=== PATIENT | male | born 1945 | race Caucasian/White ===

== ENCOUNTER 2020-03-05 20:07 | Emergency (ER) | payer OTHER, SELFPAY ==
--- NOTE | ~2020-03-05 | CT_ITS ---
EXAMINATION: CT abdomen pelvis wo con DATE: 03/05/2020 22:50 INDICATION: Nausea and vomiting. Abdominal pain. TECHNIQUE: Computed tomography (CT) of the abdomen and pelvis was performed without intravenous contr ast. Automated exposure control and iterative reconstruction technique were employed. The dose-length product was 402.93 mGy-cm. COMPARISON: None. FINDINGS: The visualized portions of the lung bases demonstrate emphysema. Calcified bilateral lung n odules are consistent with old granulomatous disease. No pleural effusion. The heart size is normal. No pericardial effusion. Calcifications in the liver and spleen are consistent with old granulomatous disease. There are gallstones in the gallbladder, which is normal in size. There is focal wall thick ening of the gallbladder fundus, consistent with adenomyomatosis. The pancreas, adrenal glands, and k idneys are normal. There is no urolithiasis. The prostate is moderately enlarged. There is diverticul osis of the colon without evidence of diverticulitis. There is long segment wall thickening of the de scending colon. There are no dilated loops of bowel. The appendix is normal. There are stents in the common and external iliac arteries. There are no pathologically enlarged lymph nodes. There is no evangelist e intraperitoneal fluid. There is mild lumbar spondylosis. IMPRESSION: 1. Wall thickening of the descending colon, consistent with colitis. Reviewed, dictated and finalized at location A.
[2020-03-05 20:19] VITALS: BP 132/69; PULSE 76; RESP 20; TEMP 36.7; O2SAT 98
[2020-03-05 20:34] LABS: Basophils Absolute Auto 0.1 K/mm3 (0.0-0.1); Basophils Percent Auto 0.4 % (0.2-1.2); Eosinophils Percent Auto 0.1 % (0-4.4); Hematocrit 40.4 % (42.0-52.0); Hemoglobin 12.8 g/dL (14.0-18.0); Immature Granulocyte Absolute 0.05 K/mm3 (0.00-0.031); Immature Granulocyte Percent A 0.3 % (0-0.5); Lymphocytes Absolute Auto 1.92 K/mm3 (0.9-3.2); Lymphocytes Percent Auto 11.6 % (18.3-44.2); Mean Corpuscular HGB Conc 31.7 g/dl (32-36); Mean Corpuscular Hemoglobin 21.3 pg (26-34); Mean Corpuscular Volume 67.2 fl (80-100); Mean Platelet Volume 10.2 fl (7.4-10.4); Monocytes Absolute Auto 1.1 K/mm3 (0.1-0.6); Monocytes Percent Auto 6.9 % (2.6-8.5); Neutrophils Absolute Auto 13.4 K/mm3 (1.3-6.7); Neutrophils Percent Auto 80.7 % (45.5-73.1); Platelet Count Result 205 k/mm3 (150-375); Red Blood Count 6.01 M/mm3 (4.6-6.20); Red Cell Distribution Width 19.1 % (11.5-14.5); White Blood Count 16.6 K/mm3 (4.5-10.0)
[2020-03-05 20:46] LABS: Alanine Aminotransferase 20 U/L (4-50); Albumin Level 4.8 g/dL (3.5-5.1); Alkaline Phosphatase 97 U/L (38-126); Aspartate Amino Transferase 30 U/L (17-59); Bilirubin,Total 1.1 mg/dL (0.2-1.3); Blood Urea Nitrogen 28 mg/dL (9-20); Calcium 9.9 mg/dL (8.4-10.2); Carbon Dioxide 22 mmol/L (22-30); Chloride 103 mmol/L (98-107); Estimated CRCL calculation 26 ml/min; Estimated Glomerular Filt Rate 29; Glucose 156 mg/dL (75-110); Lipase 51 U/L (23-300); Potassium 4.4 mmol/L (3.4-5.0); Sodium 137 mmol/L (137-145)
[2020-03-05 22:17] LABS: Add Urine Microscopic? YES; Appearance Urine Cloudy (Clear); Bilirubin Urine Negative (Negative); Blood Urine 1+ (Negative); Color Urine Amber (Yellow); Glucose Urine UA Negative (Negative); Hyaline Casts Urine 30-49 /lpf; Ketones Urine Negative (Negative); Leukocyte Esterase Ur 1+ LEU/UL (Negative); Mucus Urine Rare /lpf; Nitrate Urine Negative (Negative); Protein Urine 1+ mg/dL (Negative); Specific Grav Ur 1.025 (1.001-1.035); Squamous Epithelial Cell Urine Few /hpf (Few)
--- NOTE | 2020-03-05 22:24 | ED.ABDPAIN ---
HPI - Abdominal Pain General Chief Complaint: Abdominal Pain Stated Complaint: dizzy Time Seen by Provider: 03/05/20 21:15 History of Present Illness HPI narrative: Patient presents with his daughter for abdominal pain vomiting and diarrhea. 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 On the way home he started to have nausea and vomited, then he had to stop 4 times for diarrhea. Initially it was brown stool that had some bright red blood, and then resumed brown stool. He gauges his discomfort at a 5 out of 10 but does not want any pain medicine. He had his colonoscopy last year which was 2 polyps which were removed. He has a history of hypertension, hypercholesterolemia, carotid artery stenosis, iliac stents, cardiac stent. MD elicited complaint: abdominal pain Pertinent past history: other (Colon polyp) Onset (ago): hour(s) Related Data Allergies Allergy/AdvReac Type Severity Reaction Status Date / Time Penicillins Allergy Unknown Verified 03/05/20 22:33 Review of Systems Review of Systems: Narrative: CONSTITUTIONAL: Denies fever, chills, or sweats. EYES: Denies visual changes, redness, or discharge. ENT: Denies rhinorrhea, congestion, sore throat, or otalgia. CARDIOVASCULAR: Denies chest pain, palpitations, or edema. RESPIRATORY: Denies cough or dyspnea. GASTROINTESTINAL: He has abdominal pain, nausea, vomiting, or diarrhea. GENITOURINARY: Denies dysuria or hematuria. SKIN: Denies rash or itching. MUSCULOSKELETAL: Denies back pain, joint pain, or myalgia. NEUROLOGIC: Denies headache, numbness, or weakness. PSYCHIATRIC: Denies anxiety or depression. PMFSH Past Medical History Medical History Carotid stenosis Hypercholesterolemia Hypertension Surgical History Surgical History H/O heart artery stent Status post insertion of iliac artery stent Social History Social History (Updated 03/05/20 @ 22:25 by Valeria Stark MD) Smoking status: Former smoker Alcohol intake: never Substance use: never Exam Narrative: Exam Narrative: GENERAL: Well-appearing, well-nourished, and in no acute distress. Sunburn face and neck HEAD: Normocephalic, atraumatic. EYES: PERRLA and EOMI. ENT: Nares clear, no rhinorrhea or epistaxis. Mucous membranes moist. NECK: Supple. CHEST: Clear to auscultation. No respiratory distress. HEART: Regular rate and rhythm. No murmur heard. Normal peripheral pulses. ABDOMEN: Soft, nontender, nondistended, normal active bowel sounds. EXTREMITIES: Normal range of motion. No edema. SKIN: Warm, dry, no rash. NEURO: No focal deficits. Alert and oriented x3. PSYCH: Normal mood and affect. Course Reevaluation(s) Reevaluation #1: Went in to tell the patient that his CAT scan showed colitis. I explained to them, and he would prefer to take the oral medication and go home. His GI doctor is in [place]. He cannot remember her name. I will give her the name of our GI doctor just in case. Date: 03/05/20 Time: 23:18 Vital Signs Vital signs: Vital Signs Temperature 98.1 F 03/05/20 20:19 Pulse Rate 76 03/05/20 20:19 Respiratory Rate 20 03/05/20 20:19 Blood Pressure 132/69 03/05/20 20:19 Pulse Oximetry 98 03/05/20 20:19 Temperature 98.1 F 03/05/20 20:19 Pulse Rate 87 03/05/20 22:31 Respiratory Rate 20 03/05/20 22:31 Blood Pressure 126/71 03/05/20 22:31 Pulse Oximetry 99 03/05/20 22:31 MDM - Abdominal Pain Medical Records Attestation: I reviewed the patient's medical records. Lab Data Attestation: I reviewed the patient's lab results. Result diagrams: 03/05/20 20:26 03/05/20 20:26 Labs: Lab Results 03/05/20 03/05/20 03/05/20 Range/Units 20:26 20:26 22:06 WBC 16.6 H (4.5-10.0) K/mm3 RBC 6.01 (4.6-6.20) M/mm3 Hgb 12.8 L (14.0-18.0) g/dL Hct 40.4 L (42.0-52.0) % MCV 67.2 L (80-
[2020-03-05] MEDS: ONDANSETRON INJ 4 MG/2 ML VIAL IV PUSH (22:29)
[2020-03-05] MEDS: SODIUM CHLORIDE 0.9% IV 1,000 ML 999 ML IV CONT (22:30)
[2020-03-05 22:31] VITALS: BP 126/71; PULSE 87; RESP 20; O2SAT 99
[2020-03-05] MEDS: CIPROFLOXACIN 500 MG TAB PO (23:50)
[2020-03-05] MEDS: metroNIDAZOLE 250 MG TABLET 500 MG PO (23:50)
[2020-03-06 00:33] VITALS: BP 122/88; PULSE 80; RESP 20; O2SAT 98
== END 2020-03-06 00:45 | disposition home or self-care (01) ==
PROVIDERS: Emergency Provider Emergency Medicine; PCP Internal Medicine
DX: K52.9 Noninfective gastroenteritis and colitis, unspecified (principal); K62.5 Hemorrhage of anus and rectum; E86.0 Dehydration; I10 Essential (primary) hypertension; E78.00 Pure hypercholesterolemia, unspecified; Z95.5 Presence of coronary angioplasty implant and graft; I35.0 Nonrheumatic aortic (valve) stenosis; Z87.891 Personal history of nicotine dependence; R82.998 Other abnormal findings in urine
CPT/HCPCS: 36415; 74176; 80053; 81001; 83690; 85025; 87077; 87086; 87088; 87186; 96361; 96374; 99284; A9270; J2405; J7030